=== PATIENT | female | born 1970 | race Caucasian/White ===

== ENCOUNTER → 2018-01-17 | Outpatient (CLI) | payer OTHER ==
--- NOTE | 2018-01-17 14:04 | RADIOLOGY IMAGING REPORT ---
FACILITY: [facility] PATIENT NAME: Berenice Caballero : 1970 MR: [id number] V: [id number] EXAM DATE: ORDERING PHYSICIAN: GERA CARBALLO TECHNOLOGIST: Location: [facility] [place] Patient: Berenice Caballero : 1970 Visit/Account:[id number] Date of Sevice: 01/17/2018 Lumbar spine Indication: Back pain since September. Comparison: None available FINDINGS: 6 views of the lumbar spine were obtained. There are 5 lumbar type vertebral bodies. There is no acute osseous or acute alignment abnormality. No evidence of spondylolisthesis or spondylolysis. The vertebral body heights appear well-maintained. Mild/moderate degenerative disc disease at L5-S1 with loss of disc height, endplate sclerosis, and sm all marginal osteophytes. Mild/moderate lower lumbar facet arthropathy. Minimal additional multilev el degenerative disc disease and facet arthropathy. IMPRESSION: 1. No acute osseous or acute alignment abnormality of the lumbar spine. 2. Degenerative changes within the lumbar spine, as above, worst at L5-S1. Report Dictated By: Romero Regan MD at 01/17/2018 1:58 PM Report E-Signed By: Romero Regan MD at 01/17/2018 2:00 PM WSN:[id number]
== END ==
LOC: RAD 12:54
PROVIDERS: ATTEND Chiropractor
DX: M47.897 Other spondylosis, lumbosacral region (principal)
CPT/HCPCS: 72114